=== PATIENT | female | born 1975 | race African-American/Black ===

== ENCOUNTER 2025-01-05 17:05 | Emergency (ER) | payer BC ==
[~2025-01-05] VITALS: Ht 157.5 cm; Wt 69.0 kg
[2025-01-05 17:13] VITALS: O2SAT 99
[2025-01-05] MEDS: DEXAMETHASONE 4MG TABLET PO ONE (18:22)
[2025-01-05] MEDS: ACETAMINOPHEN 325MG TABLET PO ONE (18:23)
[2025-01-05] MEDS: LIDOCAINE 5% PATCH TOP SCH (18:29)
[2025-01-05] MEDS ORDERED: CYCL10TA21 MT (19:10)
[2025-01-05] MEDS ORDERED: LIDO-53 TP (19:10)
[2025-01-05 19:14] VITALS: BP 158/83; PULSE 81; RESP 14; TEMP 36.8; O2SAT 99
== END 2025-01-05 19:15 | disposition home or self-care (01) ==
LOC: ER 17:05
DX: M54.2 Cervicalgia (principal); Z98.890 Other specified postprocedural states; Z79.899 Other long term (current) drug therapy
CPT/HCPCS: 99284; J8540